=== PATIENT | female | born 1995 | race Caucasian/White ===

== ENCOUNTER 2025-06-16 19:01 | Emergency (ER) | payer BC, SELFPAY ==
[2025-06-16 19:12] VITALS: BP 153/101
[2025-06-16] MEDS: RABAVERT RABIES VACC W-DILUENT 2.5 UNIT IM (21:25)
--- NOTE | 2025-06-16 23:15 | ED.GENMED ---
History of Present Illness
General
Chief Complaint: Rabies
Source: patient
Exam Limitations: none
Time Seen by Provider: 06/16/25 20:32
Nursing documentation reviewed up to this point in time: agreed with
History of Present Illness
History of Present Illness:
Patient to ED for rabies series after finding bat in home yesterday. No visible bite wounds.
Past History
Past History
ED Past Medical History: None
ED Past Surgical History: None
Review of Systems
Review of Systems
Allergies reviewed?: Yes
All Other Systems: ROS reviewed and negative except as documented in HPI and ROS
Constitutional: Reports no symptoms
EENT: Reports no symptoms
Respiratory: Reports no symptoms
Cardiac: Reports no symptoms
ABD/GI: Reports no symptoms
: Reports no symptoms
Musculoskeletal: Reports no symptoms
Skin: Reports no symptoms
Neurological: Reports no symptoms
Psychiatric: Reports no symptoms
Phy Exam
General Physical Exam
General Presentation: well appearing and no apparent distress
General age: appears stated age
General Skin: warm and dry
General Habitus: normal
General Mental: alert
Musculoskeletal Exam
Musculoskeletal Exam: full ROM and neuro vasc intact
Skin Exam
Skin Exam: normal color, warm/dry and no rash
Psychiatric Exam
Psychiatric Exam: normal mood/affect
Course
Orders/Labs/Results
Orders:
Orders
06/16/25 20:54
Rabies Immune Globulin/Pf [HyperRAB] 1,588 unit IM NOW STA
06/16/25 21:00
Rabies Vaccine (Pcec)/Pf [Rabavert Rabies Vacc W-Diluent] 2.5 unit IM .ONCE ONE
Vital Signs
Initial and Last Documented VS:
Initial Vital Signs
Temp Pulse Resp BP Pulse Ox
98.5 F 76 16 153/101 96
06/16/25 19:12 06/16/25 19:12 06/16/25 19:12 06/16/25 19:12 06/16/25 19:12
Last Documented Vital Signs
Temp Pulse Resp BP Pulse Ox
98.5 F 76 16 153/101 96
06/16/25 19:12 06/16/25 19:12 06/16/25 20:51 06/16/25 19:12 06/16/25 19:12
*Radiology
Radiology exam reviewed: radiology read reviewed
*Pulse Oximetry
SaO2: 96
Oxygen Mode of Delivery: Room air
Patient hypoxic: no
*Critical Care Note
Total Time (30-74mins, 75-104mins- exclusive of procedures): Not Applicable
ED Attending Note
-
Portions of this chart may have been created with voice recognition software.� Occasional wrong word or��sound alike� substitutions may have occurred due to the inherent limitations of voice recognition software.
Discharge Plan
Departure
Patient Disposition: Home (Routine Discharge)
Date of Disposition: 06/16/25
Time of Disposition: 21:30
Patient with high blood pressure during this ER visit?: No
Condition: Good
Covid-19: Not Applicable
Discharge Problem:
Need for prophylactic vaccination against rabies
Instructions: Rabies Vaccine
Prescriptions:
New
RabAvert (PF) 2.5 unit suspension for reconstitution
1 ml IM ONCE Qty: 3 0RF
Referrals:
NONE,* [Family Provider, Internal Medicine]
Stand Alone Forms: Rabies Vaccine Post Exp Dosing
Interventions
Interventions:
*Risk Screen - Suicide Last Done: 06/16/25 19:12
*General Assessment Last Done: 06/16/25 19:12
*Neglect/Abuse Screening Last Done: 06/16/25 19:12
*ED- Fall Risk Assessment Last Done: 06/16/25 20:51
*ED COVID-19 Vaccine History Last Done: 06/16/25 20:51
*Nursing Disposition Last Done: 06/16/25 21:41
Discharge Date and Time
Discharge Date/Time: 06/16/25 21:42
Print Language: [place]
== END 2025-06-16 21:42 | disposition home or self-care (01) ==
LOC: EMR 19:01
PROVIDERS: EMERGENCY PHYSICIAN Emergency Medicine
DX: Z20.3 Contact with and (suspected) exposure to rabies (principal); Z23 Encounter for immunization; Z29.14 Encounter for prophylactic rabies immune globulin
CPT/HCPCS: 90471; 96372; 99284; 90375; 90675

== ENCOUNTER 2025-06-29 15:06 | Outpatient (RCR) | payer BC, SELFPAY ==
[2025-06-19 08:39] VITALS: BP 140/98
[2025-06-19] MEDS: RABAVERT RABIES VACC W-DILUENT 2.5 UNIT IM (08:51)
[2025-06-22] MEDS: RABAVERT RABIES VACC W-DILUENT 2.5 UNIT IM (11:47)
[2025-06-29 15:24] VITALS: BP 137/105
[2025-06-29] MEDS: RABAVERT RABIES VACC W-DILUENT 2.5 UNIT IM (15:27)
[2025-06-29 15:30] VITALS: BP 155/82
== END 2025-07-01 23:59 | disposition home or self-care (01) ==
LOC: OID 15:06
PROVIDERS: ATTENDING PHYSICIAN Emergency Medicine
DX: Z20.3 Contact with and (suspected) exposure to rabies (principal); Z23 Encounter for immunization
CPT/HCPCS: 90471; 90675